=== PATIENT | female | born 1985 | race Caucasian/White ===

== ENCOUNTER 2017-03-22 13:47 | Emergency (ER) | payer OTHER ==
[~2017-03-22] VITALS: Ht 152.4 cm; Wt 69.1 kg
[~2017-03-22 13:47] MED LIST: Bactrim,Septra DS 80 PO; DILAUDID2 MG PO; FLEET ENEMA-AD118 ML PR; FLEXERIL5 MG PO; HYDROCODON-ACE1 EAC7 PO; MIRALAX17 GM PO; MOTRIN600 MG PO; MOTRIN800 MG PO; NOHOMEMEDS; PERCOCET 5/31 TABLET PO; ULTRAM50 MG PO
[2017-03-22 15:13] VITALS: BP 109/63
== END 2017-03-22 15:13 | disposition home or self-care (01) ==
LOC: EME 13:47
DX: Z48.01 Encounter for change or removal of surgical wound dressing (principal)
CPT/HCPCS: 99281; 99283

== ENCOUNTER 2017-11-04 13:45 | Emergency (ER) | payer OTHER ==
[~2017-11-04] VITALS: Ht 152.4 cm; Wt 73.2 kg
[2017-11-04 14:15] LABS: APPEARANCE CLOUDY ((CLEAR)); BILIRUBIN NEGATIVE; BLOOD SMALL; COLOR YELLOW ((YELLOW)); GLUCOSE (STRIP) 50; KETONES NEGATIVE; LEUKOCYTES LARGE; NITRITE POSITIVE; PROTEIN (STRIP) 100; SPECIFIC GRAVITY 1.014 (1.000-1.030); UROBILINOGEN 0.2 MG/DL (0.2-1.0)
[2017-11-04 14:40] LABS: WHITE BLOOD CELLS TNTC /HPF (0-5)
[2017-11-04 14:41] LABS: UCUL ADDED? YES
[2017-11-04] MEDS ORDERED: PYRIDIUM200 MG PO (15:27)
[2017-11-04] MEDS ORDERED: KEFLEX500 MG PO (15:27)
[2017-11-04] MEDS ORDERED: ZOFRAN ODT4 MG PO (15:27)
[2017-11-04 15:45] VITALS: BP 122/71
== END 2017-11-04 15:47 | disposition home or self-care (01) ==
LOC: EME 13:45
DX: N39.0 Urinary tract infection, site not specified (principal); B96.20 Unspecified Escherichia coli [E. coli] as the cause of diseases classified elsewhere; F41.9 Anxiety disorder, unspecified
CPT/HCPCS: 81003; 87077; 87086; 87186; 99281; 99284